=== PATIENT | female | born 1990 | race Caucasian/White ===

== ENCOUNTER 2020-12-10 16:50 | Emergency (ER) | payer SELFPAY ==
[2020-12-10 17:03] VITALS: BP 124/80; PULSE 98; RESP 18; TEMP 36.7; O2SAT 98; BMI 26.4
--- NOTE | 2020-12-10 17:37 | CTR_ITS ---
PROCEDURE INFORMATION: Exam: CT Cervical Spine Without Contrast Exam date and time: 12/10/2020 5:37 PM Age: 30 years old Clinical indication: Injury or trauma; Other: Thrown from horse x 1 month; Blunt trauma; Injury details: RT neck and arm numbness, hand feels like fire; Additional info: R arm radiculopathy TECHNIQUE: Imaging protocol: Computed tomography images of the cervical spine without contrast. Radiation optimization: All CT scans at this facility use at least one of these dose optimization techniques: automated exposure control; mA and/or kV adjustment per patient size (includes targeted exams where dose is matched to clinical indication); or iterative reconstruction. COMPARISON: No relevant prior studies available. RADIATION DOSE METRICS: Total DLP (mGy-cm): 430.17 FINDINGS: Bones/joints: No acute fracture. Normal alignment. Discs/Spinal canal/Neural foramina: No significant disc protrusion. No severe spinal canal stenosis. No significant neural foraminal narrowing. Lungs: Lung apices are normal. Soft tissues: Unremarkable. CT/CT cervical spin wo con* [id number] IMPRESSION: No acute findings. Radiation Dose CTDIVOL = (mGy): DLP = 430.17 (mGy-cm)
--- NOTE | 2020-12-10 17:46 | XRR_ITS ---
PROCEDURE INFORMATION: Exam: XR Right Elbow Exam date and time: 12/10/2020 5:46 PM Age: 30 years old Clinical indication: Injury or trauma; Other: Thrown from horse x 1 month; Blunt trauma (contusions or hematomas); Elbow; Right; Additional info: Pain TECHNIQUE: Imaging protocol: XR Right elbow. Views: 3 or more views. COMPARISON: No relevant prior studies available. FINDINGS: Bones/joints: Negative for fracture or dislocation. Joint spaces are preserved. Soft tissues: Normal. XR/XR elbow RT min 3V* [id number] IMPRESSION: No acute findings.
[2020-12-10 17:48] VITALS: PULSE 84
[2020-12-10 17:51] VITALS: BP 118/79; PULSE 84; RESP 18; O2SAT 97
--- NOTE | 2020-12-10 18:13 | W.ED.EXTPRO ---
HPI - Extremity Problem General: Chief complaint: Extremity Injury, Upper Stated complaint: R arm pain, fingers numb Time Seen by Provider: 12/10/20 17:37 Source: patient Mode of arrival: ambulatory Limitations: no limitations History of Present Illness: HPI Narrative: 30-year-old female states she was bucked off a horse a month ago. She states that since then she has been having pain in her right shoulder neck and elbow with shooting pain down her hand. States she had severe sharp pains in the palm of her right hand. States the pain currently is 6 out of 10. Denies any worsening proving factors. Denies any weakness. Denies any headaches. Associated symptoms: Deny chest pain, fever(s) or rash Review of Systems Const: Denies: fever(s), chills, body aches or change in appetite Eyes: Denies: blurry vision or eye discomfort ENMT: Denies: throat pain or dental pain Card: Denies: chest pain Resp: Denies: dyspnea GI: Denies: abdominal pain, nausea, vomiting or diarrhea : Denies: dysuria Musc: Reports: neck pain and extremity pain; Denies: back pain Skin/Breast: Denies: rash Neuro: Denies: headache(s) Psych: Denies: depression Nam/Lymph: Denies: easy bruising All/Imm: Denies: urticaria Physical Exam Const: COMMON NORMALS: no acute distress, patient oriented x3 and healthy appearing HENMT: COMMON NORMALS: normocephalic and atraumatic HEAD & SCALP: normocephalic and atraumatic Eye: COMMON NORMALS: Equal, round and reactive pupils present and EOMs intact bilaterally PUPIL: Yes Equal, round and reactive pupils present Neck/C-Spine: COMMON NORMALS: full ROM and supple Chest: COMMONS NORMALS: normal inspection of the chest and normal palpation of entire chest wall Resp: COMMON NORMALS: normal respiratory effort, No retractions, No use of accessory muscles and clear to auscultation bilaterally AUSCULTATION: clear to auscultation bilaterally Cardio: COMMON NORMALS: regular rate, regular rhythm and No murmurs present (Cardio) RATE: regular rate RHYTHM: regular rhythm GI: COMMON NORMALS: Normal to inspection, nondistended, normoactive bowel sounds present, Soft to palpation, non-tender and no masses PALPATION: Yes Soft to palpation Extremity: COMMON NORMALS: normal to inspection NARRATIVE EXTREMITY EXAM: Some tenderness along the elbow and the neck on the right side distal pulses and sensation intact. Neuro: COMMON NORMALS: patient oriented x3, moves all extremities and no focal motor deficits Psych: COMMON NORMALS: mental status grossly normal, Normal thought process present and cooperative THOUGHT PROCESS: Normal thought process present Skin: COMMON NORMALS: no rashes or lesions noted and no wounds GENERAL SKIN EXAM: no rashes or lesions noted Course Vital Signs: Vital signs: Vital Signs Temperature 98.1 F 12/10/20 17:03 Pulse Rate 84 12/10/20 17:51 Respiratory Rate 18 12/10/20 17:51 Blood Pressure 118/79 12/10/20 17:51 Pulse Oximetry 97 12/10/20 17:51 Discharge Plan Discharge Patient Disposition: Home Clinical Impression: Arm pain, right Condition: Stable Prescriptions: No Action ibuprofen 200 mg Tablet 200 mg PO Q6H PRN (Reason: Pain) RF: 0 Discharge Orders: Discharge ED (Routine); Ordered 12/10/20 Ordered By: Javier Jacinto Referrals: Adonay Villalobos DO [Physician] - 1-3 days Discharge Diet: Advance as tolerated Discharge Activity: Resume usual activity Patient Instructions: Arthralgia (ED) Coding Level of Care Code ED Paper Cup Machine Operator for Sury Fwd Exam Comprehensive
[2020-12-10] MEDS: dexamethasone 10 mg/mL INJ IM (18:39)
[2020-12-10] MEDS: ketorolac 60 mg/2 mL INJ IM (18:40)
[2020-12-10 18:46] VITALS: PULSE 83; RESP 17; O2SAT 96
--- NOTE | 2020-12-11 10:45 | DCPLANNER ---
sales operations manager had message to schedule a follow up appointment for patient with ortho. sales operations manager called the ortho clinic, spoke with Anaid, gave clinic patients information. sales operations manager was told that patients information would be printed and reviewed. Clinic will call patient with appointment information.
--- NOTE | 2020-12-24 11:25 | DCPLANNER ---
vaccine manager called the ortho clinic to confirm if an appointment had been scheduled for patient. vaccine manager spoke with Corina, was told that clinic has not been able to reach patient to schedule an appointment.
== END 2020-12-10 18:46 | disposition home or self-care (01) ==
PROVIDERS: Emergency Provider Emergency Medicine
DX: M79.601 Pain in right arm (principal)
CPT/HCPCS: 72125; 73080; 96372; 99283; J1100; J1885